=== PATIENT | female | born 1985 | race Caucasian/White ===

== ENCOUNTER 2024-02-29 10:33 | Emergency (ER) | payer MEDICAID ==
[~2024-02-29] VITALS: Ht 170.2 cm; Wt 91.9 kg
[2024-02-29 10:58] LABS: BASOPHILS % (AUTO) 0.3 % (0-1); EOSINOPHILS # (AUTO) 0.1 X10'3 (0-0.9); EOSINOPHILS % (AUTO) 2.1 % (0-6); HEMATOCRIT 44.9 % (35.0-45.0); HEMOGLOBIN 15.1 g/dl (12.0-16.0); LYMPHOCYTES # (AUTO) 1.6 X10'3 (1.1-4.8); LYMPHOCYTES % (AUTO) 23.2 % (21-51); MEAN CORPUSCULAR HEMOGLOBIN 29.7 PG (27.0-31.0); MEAN CORPUSCULAR HGB CONC 33.5 g/dL (33.0-36.5); MEAN CORPUSCULAR VOLUME 88.7 FL (78-98); MONOCYTES # (AUTO) 0.5 X10'3 (0-0.9); MONOCYTES % (AUTO) 7.7 % (2-12); NEUTROPHILS # (AUTO) 4.6 X10'3 (1.8-7.7); NEUTROPHILS % (AUTO) 66.7 % (42-75); PLATELET COUNT 203 X10'3 (140-440); RED BLOOD COUNT 5.06 X10'6 (4.20-5.60); RED CELL DISTRIBUTION WIDTH 14.5 % (11.5-14.5); WHITE BLOOD COUNT 6.8 X10'3 (4.5-11.0)
[2024-02-29 11:11] LABS: ALANINE AMINOTRANSFERASE 36 U/L (12-78); ALBUMIN 3.9 G/DL (3.4-5.0); ALBUMIN/GLOBULIN RATIO 1.1 (1.1-1.5); ALKALINE PHOSPHATASE 68 IU/L (46-116); ANION GAP 9 (8-16); ASPARTATE AMINO TRANSFERASE 28 U/L (10-37); BILIRUBIN,TOTAL 1.1 MG/DL (0.1-1.0); BLOOD UREA NITROGEN 10 MG/DL (7-18); CALCIUM 9.3 MG/DL (8.5-10.1); CHLORIDE 102 MMOL/L (99-107); CREATININE 0.83 MG/DL (0.40-0.90); GLUCOSE 102 MG/DL (70-104); SODIUM 139 MMOL/L (135-145); TOTAL CARBON DIOXIDE 28.3 MMOL/L (24-32); TOTAL PROTEIN 7.6 G/DL (6.4-8.2); eGFR 77 ML/MIN
[2024-02-29 11:19] LABS: PRO BRAIN NATRIURETIC PEPTIDE 59 PG/ML (0-125)
[2024-02-29] MEDS: meclizine 12.5mg tablet PO ONE (13:29)
[2024-02-29] MEDS ORDERED: MECL-302 PO (15:04)
[2024-02-29 15:08] VITALS: BP 121/67; PULSE 76; RESP 14; TEMP 97.5; O2SAT 98
== END 2024-02-29 15:11 | disposition home or self-care (01) ==
LOC: ER 10:34
DX: R42 Dizziness and giddiness (principal); R07.9 Chest pain, unspecified; Z88.8 Allergy status to other drugs, medicaments and biological substances
CPT/HCPCS: 36415; 71045; 80053; 83880; 84484; 85025; 93005; 99285; J8597

== ENCOUNTER 2024-05-31 19:36 | Emergency (ER) | payer MEDICAID ==
[~2024-05-31] VITALS: Ht 172.7 cm; Wt 91.7 kg
[~2024-05-31 19:36] MED LIST: MECL-302 PO
[2024-05-31 19:45] VITALS: TEMP 98.3
[2024-05-31 20:09] LABS: BASOPHILS % (AUTO) 0.6 % (0-1); EOSINOPHILS # (AUTO) 0.1 X10'3 (0-0.9); EOSINOPHILS % (AUTO) 1.9 % (0-6); HEMATOCRIT 40.2 % (35.0-45.0); HEMOGLOBIN 13.7 g/dl (12.0-16.0); LYMPHOCYTES # (AUTO) 2.1 X10'3 (1.1-4.8); LYMPHOCYTES % (AUTO) 27.5 % (21-51); MEAN CORPUSCULAR HEMOGLOBIN 31.1 PG (27.0-31.0); MEAN CORPUSCULAR HGB CONC 34.2 g/dL (33.0-36.5); MEAN PLATELET VOLUME 8.2 FL (7.4-10.4); MONOCYTES # (AUTO) 0.5 X10'3 (0-0.9); MONOCYTES % (AUTO) 6.8 % (2-12); NEUTROPHILS # (AUTO) 4.8 X10'3 (1.8-7.7); NEUTROPHILS % (AUTO) 63.2 % (42-75); PLATELET COUNT 206 X10'3 (140-440); RED BLOOD COUNT 4.42 X10'6 (4.20-5.60); RED CELL DISTRIBUTION WIDTH 13.2 % (11.5-14.5); WHITE BLOOD COUNT 7.6 X10'3 (4.5-11.0)
[2024-05-31 20:23] LABS: ALANINE AMINOTRANSFERASE 20 U/L (12-78); ALBUMIN 3.9 G/DL (3.4-5.0); ALBUMIN/GLOBULIN RATIO 1.2 (1.1-1.5); ALKALINE PHOSPHATASE 62 IU/L (46-116); ANION GAP 7 (8-16); ASPARTATE AMINO TRANSFERASE 15 U/L (10-37); BILIRUBIN,TOTAL 1.1 MG/DL (0.1-1.0); BLOOD UREA NITROGEN 9 MG/DL (7-18); BUN/CREATININE RATIO 10.6 (10.0-20.0); CALCIUM 9.1 MG/DL (8.5-10.1); CHLORIDE 102 MMOL/L (99-107); CREATININE 0.85 MG/DL (0.40-0.90); GLUCOSE 118 MG/DL (70-104); LIPASE 30 U/L (16-77); POTASSIUM 3.7 MMOL/L (3.5-5.1); SODIUM 137 MMOL/L (135-145); TOTAL CARBON DIOXIDE 28.2 MMOL/L (24-32); TOTAL PROTEIN 7.1 G/DL (6.4-8.2); eCRCL 91 ML/MIN; eGFR 75 ML/MIN
[2024-05-31 20:55] LABS: BILIRUBIN,URINE NEGATIVE (Neg); CLARITY,URINE CLEAR (Clear); COLOR,URINE STRAW (Yellow); GLUCOSE, URINE NEGATIVE (Neg); KETONES,URINE NEGATIVE (Neg); LEUKOCYTE ESTERASE ,URINE NEGATIVE (Neg); NITRITES, URINE NEGATIVE (Neg); OCCULT BLOOD,URINE NEGATIVE (Neg); PROTEIN,URINE NEGATIVE (Neg); UROBILINOGEN,URINE 0.2 E.U/dL (0.2-1.0)
[2024-05-31 20:56] LABS: URINE HCG POSITIVE (NEG)
[2024-05-31 21:01] LABS: UA COLLECTION TYPE CLN CATCH MIDSTREAM
[2024-05-31] MEDS: morphine 4 MG/ML inj SYRINge IV ONE (21:59)
[2024-05-31] MEDS: ondansetron/PF 4mg/2ml inj IV ONE (21:59)
[2024-06-01 00:14] LABS: BETA HCG,QUANTITATIVE 388 mIU/ml
[2024-06-01] MEDS ORDERED: HYDR-3965 PO (02:07)
[2024-06-01] MEDS ORDERED: ONDA-245 PO (02:07)
[2024-06-01 02:17] VITALS: BP 139/87; PULSE 89; RESP 16; O2SAT 100
== END 2024-06-01 02:24 | disposition home or self-care (01) ==
LOC: ER 19:37
DX: N93.9 Abnormal uterine and vaginal bleeding, unspecified (principal); Z88.8 Allergy status to other drugs, medicaments and biological substances; Z79.899 Other long term (current) drug therapy; Z98.51 Tubal ligation status
CPT/HCPCS: 36415; 76817; 76856; 80053; 81003; 81025; 83690; 84702; 85025; 93976; 96374; 96375; 99285; J2270; J2405

== ENCOUNTER 2024-09-24 11:19 | Emergency (ER) | payer MEDICAID ==
[~2024-09-24] VITALS: Ht 170.2 cm; Wt 93.0 kg
[~2024-09-24 11:19] MED LIST changes: +NEOM10SO7 RIGHT EAR; +ONDA-245 PO
[2024-09-24] MEDS ORDERED: BUTA-245 PO (12:20)
[2024-09-24] MEDS: ketorolac trometh 30MG/ML vial 30 MG/ML VIAL IM ONE (13:06)
[2024-09-24] MEDS: ondansetron 4mg rapidly disintigrating tab PO ONE (13:45)
[2024-09-24 14:04] VITALS: BP 144/88; PULSE 79; RESP 16; TEMP 98.1; O2SAT 99
== END 2024-09-24 14:02 | disposition home or self-care (01) ==
LOC: ER 11:19
DX: G43.909 Migraine, unspecified, not intractable, without status migrainosus (principal); Z88.8 Allergy status to other drugs, medicaments and biological substances; Z79.899 Other long term (current) drug therapy
CPT/HCPCS: 96372; 99283; J1885; A6449

== ENCOUNTER 2024-11-12 08:10 | Emergency (ER) | payer MEDICAID ==
[~2024-11-12] VITALS: Ht 175.3 cm; Wt 94.8 kg
[~2024-11-12 08:10] MED LIST changes: +BUTA-245 PO; -NEOM10SO7 RIGHT EAR
[2024-11-12] MEDS: normal saline 1000ML IV soln IVB ONE (09:53)
[2024-11-12] MEDS: ketorolac trometh 15mg/ml vial 15 MG/ML ML IV ONE (09:53)
[2024-11-12 10:21] VITALS: RESP 16
[2024-11-12 10:27] VITALS: BP 127/71; PULSE 66; TEMP 98.2; O2SAT 99
== END 2024-11-12 10:36 | disposition home or self-care (01) ==
LOC: ER 08:10
DX: G43.909 Migraine, unspecified, not intractable, without status migrainosus (principal); Z88.8 Allergy status to other drugs, medicaments and biological substances
CPT/HCPCS: 96374; 99283; J1885; J7030

== ENCOUNTER 2025-01-01 11:50 | Emergency (ER) | payer MEDICAID ==
[~2025-01-01] VITALS: Ht 170.2 cm; Wt 95.0 kg
[2025-01-01 12:00] VITALS: BP 150/81; PULSE 85; RESP 15; O2SAT 99
[2025-01-01 13:12] LABS: CLARITY,URINE SLIGHTLY CLOUDY (Clear); COLOR,URINE YELLOW (Yellow); UA COLLECTION TYPE CLN CATCH MIDSTREAM
[2025-01-01 13:13] LABS: GLUCOSE, URINE NEGATIVE (Neg); KETONES,URINE NEGATIVE (Neg); OCCULT BLOOD,URINE LARGE (Neg); PROTEIN,URINE TRACE mg/dl (Neg)
[2025-01-01 13:14] LABS: BILIRUBIN,URINE NEGATIVE (Neg); LEUKOCYTE ESTERASE ,URINE MODERATE (Neg); NITRITES, URINE NEGATIVE (Neg); UROBILINOGEN,URINE 0.2 E.U/dL (0.2-1.0)
[2025-01-01 13:15] LABS: BACTERIA,URINE 1+ /HPF (Neg); MUCUS STRANDS FEW /LPF (Neg); SQUAMOUS EPITHELIAL CELL,UR FEW /LPF (FEW); TRANSITIONAL EPI CELLS,URINE FEW /HPF; WBC CLUMPS,URINE MODERATE /HPF (NEGATIVE); WBC,URINE 20-30 /HPF (0-4)
--- NOTE | 2025-01-01 14:17 | Physician Documentation ---
History of Present Illness ~ Chief Complaint: Urinary Symptoms Stated Complaint: UTI Time Seen by MD: 12:12 HPI Patient is seen today with complaints of urinary tract infection like symptoms including dysuria, urgency, frequency. Patient denies any fevers or chills or body aches or flank pain. Patient has no other concern or complaint at this time. Patient states her last urinary tract infection was around age 18. Medication Reconciliation Allergies: Coded Allergies: sumatriptan (Verified Allergy, Severe, anaphylaxis, 09/24/24) Scheduled Meclizine HCl (Meclizine HCl), 1 TAB PO Q8H Ondansetron 8mg ODT (Ondansetron Odt), 1 TAB PO Q6H Scheduled PRN Butalb/Acetaminophen/Caffeine (Fioricet Tab), 1 TAB PO Q12H PRN PRN for pain, (Reported) Review of Systems Constitutional: Denies: chills, fever, weakness Eyes: Denies: pain, blurred vision ENT: Denies: ear pain, nose pain, throat pain, mouth pain Respiratory: Denies: cough, shortness of breath Cardiovascular: Denies: chest pain, palpitations Gastrointestinal: Denies: abdominal pain, nausea, vomiting Genitourinary: Denies: burning, dysuria Female Genitalia: Denies: vaginal discharge, pelvic pain Neurological: Denies: headache, dizziness Musculoskeletal: Denies: pain, swelling Integumentary: Denies: rash, lesions Allergic/Immunologic: Denies: hives, itching Hematologic/Lymphatic: Denies: no symptoms reported Psychiatric: Denies: depression, anxiety Physical Exam Vital Signs: Temperature: 98.1, Heart Rate: 85, Respiratory Rate: 15, BP: 150/81, Pulse Oximetry: 99, Weight: 95.000 Oxygen Flow Rate: 0 Physical Exam General: Awake and Alert, no acute distress. HEENT: Conjunctiva pink, Sclera clear, Mucus Membranes moist. Neck: Supple without masses and tenderness. Resp: Unlabored. Lungs clear to auscultation bilaterally. Heart: Regular Rate and rhythm, normal S1 and S2 without murmur, rub or gallop. Abdomen: Patient on exam does have mild tenderness to palpation of the suprapubic area. CVA tenderness is negative bilaterally. Extremities: No cyanosis,clubbing or edema. Skin: Warm and Dry. Progress Results/Orders Results/Orders Orders - THAD PORTER Nguyễn PAC Cult Urine + [address] (01/01/25 13:16) Completed Orders - PORTERTHAD Nguyễn PAC Ua W/Microscopic, Cult If Ind (01/01/25 12:01) Vital Signs 01/01/25 12:00 Temp 98.1 Pulse 85 Resp 15 B/P (MAP) 150/81 Pulse Ox 99 O2 Flow Rate 0 Laboratory Tests Test 01/01/25 12:01 Urine Specimen Description Cln catch midstream Urine Color Yellow Urine Clarity Slightly cloudy Urine pH 6.0 Urine Specific [place] 1.010 Urine Protein Trace Urine Glucose (UA) Negative Urine Ketones Negative Urine Occult Blood Large H Urine Nitrite Negative Urine Bilirubin Negative Urine Urobilinogen 0.2 Urine Leukocyte Esterase Moderate H Urine RBC 10-20 Urine WBC 20-30 H Urine WBC Clumps Moderate Urine Squamous Epithelial Cells Few Urine Transitional Epithelial Cells Few Urine Bacteria 1+ Urine Mucus Few Urine Culture Indicated Indicated Volume Urine Centrifuged 10 ml Urine Comment Medical Decision Making Findings Patient is seen today with complaints of urinary tract infection like symptoms including dysuria, urgency, frequency. Patient denies any fevers or chills or body aches or flank pain. Patient has no other concern or complaint at this time. Patient states her last urinary tract infection was around age 18. Patient was given a dose of Rocephin 1 g IM in the ED today. Prescription of Keflex 500 mg one tab 3 times a day to be taken for five days sent to patient's pharmacy. Patient will return to ED with any worsening, concerning or changing symptoms. Shared decision-making utilized today. Departure Disposition: HOME / SELF CARE / HOMELESS Impression: Primary Impression: Acute urinary tract infection Condition: Improved Discharge Instructions: Urinary Tract Infection, Adult Additional Instructions: Patient was given a dose of Rocephin 1 g IM in the ED today. Prescription of Keflex 500 mg one tab 3 times a day to be taken for five days sent to patient's pharmacy. Patient will return to ED with any worsening, concerning or changing symptoms. Shared decision-making utilized today. Referrals: NO PRIMARY CARE PROVIDER (PCP) Prescriptions Cephalexin*Monohydrate* (Keflex*) 500 Mg Capsule 1 CAP PO Q8H for 5 Days, #15 CAP Prov: PORTERCHRISTIANTHAD R PAC 01/01/25 Signature Scribe Signature: No scribe Attestation: No scribe PORTER,THAD R PAC January 01, 2025 14:17
[2025-01-01] MEDS ORDERED: CEPH-585 PO (14:20)
[2025-01-01] MEDS: CefTRIAXone 1000mg IM Kit (w/lidocaine diluent) IM STA (14:22)
[2025-01-01 14:32] VITALS: TEMP 98.1
== END 2025-01-01 14:33 | disposition home or self-care (01) ==
LOC: ER 11:51
DX: N39.0 Urinary tract infection, site not specified (principal); Z88.8 Allergy status to other drugs, medicaments and biological substances; Z79.899 Other long term (current) drug therapy
CPT/HCPCS: 81001; 87077; 87088; 87186; 96372; 99283; J0696

== ENCOUNTER 2025-02-22 09:00 | Emergency (ER) | payer MEDICAID ==
[~2025-02-22] VITALS: Ht 170.2 cm; Wt 88.8 kg
[2025-02-22 09:06] VITALS: TEMP 97.6
[2025-02-22 09:57] LABS: MEAN PLATELET VOLUME 8.5 FL (7.4-10.4); RED CELL DISTRIBUTION WIDTH 13.3 % (11.5-14.5)
--- NOTE | 2025-02-22 10:01 | RADIOLOGY REPORT ---
EXAM: DI CHEST,SINGLE VIEW Indication: SOB Technique: Single frontal view of the chest was obtained Comparison: DI CHEST,SINGLE VIEW on DOS: 02/29/24 FINDINGS: Lines and Tubes: None Lungs: No focal consolidation. Pleura: No effusion. No pneumothorax. Cardiomediastinal contours: Unremarkable Bones: No acute osseous abnormality. IMPRESSION: No acute cardiopulmonary disease.
--- NOTE | 2025-02-22 10:07 | ELECTROCARDIOGRAPH REPORT ---
[facility] Test Date: 2025-02-22 Test Time: 09:15:57 Pat Name: MOHAN HALL Department: EMERGENCY ROOM Room: Gender: F Office Professional: CHERISE : 1985 Requested By: CARLOS FLEMING Order Number: [id number] Reading MD: Measurements Intervals [place] Rate: 90 P: 49 [place]: 151 QRS: 60 QRSD: 97 T: 39 QT: 357 QTc: 437 Interpretive Statements Sinus rhythm Please click the below link to view image of tracing.
[2025-02-22 10:19] LABS: CREATININE 0.79 MG/DL (0.40-0.90); TOTAL CARBON DIOXIDE 29.6 MMOL/L (24-32); eCRCL 94 ML/MIN; eGFR 81 ML/MIN
[2025-02-22 10:29] LABS: ETHANOL < 10 MG/DL (<10)
--- NOTE | 2025-02-22 12:10 | Physician Documentation ---
History of Present Illness ~ Chief Complaint: Mental Health Eval Stated Complaint: DEPRESSION Time Seen by MD: 09:23 Primary Medical [facility] Mode of Arrival: POV HPI 39 year old female with chest pain since this morning. She is otherwise healthy but has been very depressed lately from multiple life stressors but denies suicidal ideation. She denies fever, cough, N/V/D, urinary symptoms. She does report her pain increases with deep breathing but not body position. She has no history of DVT/PE, denies hemoptysis, denies leg swelling and recent long distance travel. Medication Reconciliation Allergies: Coded Allergies: sumatriptan (Verified Allergy, Severe, anaphylaxis, 09/24/24) Scheduled Meclizine HCl (Meclizine HCl), 1 TAB PO Q8H Ondansetron 8mg ODT (Ondansetron Odt), 1 TAB PO Q6H Scheduled PRN Butalb/Acetaminophen/Caffeine (Fioricet Tab), 1 TAB PO Q12H PRN PRN for pain, (Reported) Past Medical History Smoking Status: Never smoker Review of Systems All Other Systems at this time: Reviewed and Negative Physical Exam Vital Signs: RN Vital Signs have been reviewed: Yes, Temperature: 97.6, Source: Temporal, Heart Rate: 85, Respiratory Rate: 14, BP: 121/70, Pulse Oximetry: 98, Weight: 88.800 Oxygen Flow Rate: 0 Physical Exam HEENT: PERRL, moist oral mucosa, EOMI Pulmonary: No respiratory distress CTAB Cardiac: RRR, no murmur, rub or gallop MSK: no deformity Skin: w/d/i, no rash Neuro: alert, nonfocal Psych: normal affect Progress Results/Orders Results/Orders Orders - CARLOS FLEMING MD Urinalysis (02/22/25 09:12) Hcg, Ur Ql (02/22/25 09:12) Drug Screen, Urine (02/22/25 09:12) Close Observation Level (02/22/25 09:12) Covid19 Binax Poc Result Entry (02/22/25 09:12) Regular Diet (02/22/25 Lunch) Chest,Single View (02/22/25 09:21) Completed Orders - CARLOS FLEMING MD Electrocardiogram (02/22/25 09:10) Cbc/Diff (02/22/25 09:12) Ethanol (02/22/25 09:12) TSH (02/22/25 09:12) BMP (02/22/25 09:12) Chest,Single View (02/22/25 09:21) Vital Signs 02/22/25 02/22/25 02/22/25 09:06 09:31 10:15 Temp 97.6 Pulse 92 85 Resp 17 14 B/P (MAP) 143/89 121/70 (87) Pulse Ox 95 98 O2 Flow Rate 0 Laboratory Tests Test 02/22/25 09:25 White Blood Count 6.2 Red Blood Count 5.16 Hemoglobin 15.7 Hematocrit 46.1 H Mean Corpuscular Volume 89.3 Mean Corpuscular Hemoglobin 30.5 Mean Corpuscular Hemoglobin Concent 34.2 Red Cell Distribution Width 13.3 Platelet Count 233 Mean Platelet Volume 8.5 Neutrophils (%) (Auto) 68.0 Lymphocytes (%) (Auto) 22.3 Monocytes (%) (Auto) 7.8 Eosinophils (%) (Auto) 1.4 Basophils (%) (Auto) 0.5 Neutrophils # (Auto) 4.2 Lymphocytes # (Auto) 1.4 Monocytes # (Auto) 0.5 Eosinophils # (Auto) 0.1 Basophils # (Auto) 0.0 CBC Comment Sodium Level 133 L Potassium Level 3.4 L Chloride Level 101 Carbon Dioxide Level 29.6 Anion Gap 2 L Blood Urea Nitrogen 9 Creatinine 0.79 Estimated GFR/1.73 m2 81 BUN/Creatinine Ratio 11.4 Glucose Level 112 H Calcium Level 9.1 Albumin 4.2 Thyroid Stimulating Hormone (TSH) 1.72 Chemistry Comments Ethyl Alcohol Level < 10 EKG/XRAY/CT/US/VASC/MRI EKG : Indication: chest pain EKG Rate: 90 EKG: NSR, no ST T wave changes EKG Blocks: none Additional Comment EKG by my interpretation as above Chest X-Ray : Interpreted By: self Views: 1 VIEW Indication: chest pain Lungs: normal Mediastinum: normal Ribs/Bones: normal Abdomen: normal Medical Decision Making Findings 39 year old female with chest pain. VS unremarkable, PERC negative, and low risk patient who is likely more somatic symptoms from depression rather than significant medical pathology. Indeed her CBC/CMP/troponin/CXR/EKG were unremarkable. Will certified alcohol counselor, reassure, discharge with return precautions. She is able to verbalize a plan of self care. Differential Dx:Considerations: Include: angina, cholelithiasis, herpes zoster, myocardial infarction, pericarditis, pleuritis, pancreatitis, pneumonia, pneumothorax Departure Disposition: 01 HOME / SELF CARE / HOMELESS Impression: Primary Impression: Depression Additional Impression: Chest pain Condition: Stable Discharge Instructions: Depression, Adult Referrals: NO PRIMARY CARE PROVIDER (PCP) Education Educated: Patient Educated regarding: diagnosis, treatment, prognosis, need for follow up Signature Scribe Signature: . Attestation: . CARLOS FLEMING MD Feb 22, 2025 12:10
[2025-02-22 12:44] VITALS: BP 122/60; PULSE 74; RESP 16; O2SAT 98
== END 2025-02-22 12:43 | disposition home or self-care (01) ==
LOC: ER 09:02
DX: F32.A Depression, unspecified (principal); R07.89 Other chest pain; Z88.8 Allergy status to other drugs, medicaments and biological substances; Z79.899 Other long term (current) drug therapy; Z20.822 Contact with and (suspected) exposure to COVID-19
CPT/HCPCS: 36415; 71045; 80048; 80320; 84443; 85025; 93005; 99285

== ENCOUNTER 2025-03-11 10:22 | Emergency (ER) | payer MEDICAID ==
[~2025-03-11] VITALS: Ht 170.2 cm; Wt 84.5 kg
--- NOTE | 2025-03-11 13:00 | Physician Documentation ---
History of Present Illness ~ Chief Complaint: Headache Stated Complaint: HEADACHE,NAUSEA Time Seen by MD: 11:54 OK to notify your PCP?: Yes Primary Medical Doctor: miranda maxwell Source: patient Mode of Arrival: POV Exam Limitations: no limitations HPI 39-year-old female presents for left-sided migraine which started last night. She states when she woke up this morning it was worse. She has a history of migraines and states this feels the same. She tried taking Tylenol and ibuprofen with no relief. She does have some photophobia and was nauseous earlier today. No recent illnesses. Medication Reconciliation Allergies: Coded Allergies: sumatriptan (Verified Allergy, Severe, anaphylaxis, 09/24/24) Scheduled Meclizine HCl (Meclizine HCl), 1 TAB PO Q8H Ondansetron 8mg ODT (Ondansetron Odt), 1 TAB PO Q6H Scheduled PRN Butalb/Acetaminophen/Caffeine (Fioricet Tab), 1 TAB PO Q12H PRN PRN for pain, (Reported) Review of Systems All Other Systems at this time: Reviewed and Negative Physical Exam Vital Signs: RN Vital Signs have been reviewed: Yes, Temperature: 97.1, Source: Oral, Heart Rate: 75, Respiratory Rate: 16, BP: 117/79, Pulse Oximetry: 97, Weight: 84.500 Oxygen Flow Rate: 0 Pulse Oximetry Reflects: adequate oxygenation Physical Exam General: Alert, no apparent distress. HEENT: PERRL, EOMI, no injection, moist mucous membranes. Neck: Full range of motion. Respiratory: Lungs clear, no respiratory distress. Chest: No accessory muscle use. Cardiovascular: Regular rate and rhythm, no murmurs. Gastrointestinal: Soft, nontender, nondistended. Bowels sounds present. Extremities: Normal range of motion, no deformity. Neurologic: Oriented x4. Psychiatric: Normal mood and affect. Skin: Normal color, warm and dry. No edema, no ecchymosis. Progress Progress Note 1321: She experienced an episode after administration of Toradol and Benadryl of shortness of breath and anxiety. She reports that she has had these medications before and not had this type of a reaction. I discussed this case with Dr. Pardo and no further medications are needed just reassurance that Benadryl IV can sometimes make you feel weird. As I was in the room with the patient she started to calm down and breathe better approximately 3 minutes after feeling short of breath. Results/Orders Reviewed/noted all lab results: Yes Results/Orders Orders - LEATHA GILBERT Saline Lock (03/11/25 ) Completed Orders - LEATHA GILBERT [employer] Normal Saline 1000ml (0.9% Sodium Chlori (03/11/25 12:55) Ketorolac Trometh 15mg/Ml Vial (Toradol (03/11/25 12:55) Diphenhydramine Inj (Benadryl Inj.) (03/11/25 12:55) Medications Received in ER Medications (Trade) Dose Ordered Sig/Krishna Route PRN Reason Start Time Stop Time Status Last Admin Dose Admin (0.9% sodium chloride (NS) 1000ml IV soln) 1,000 ml ONCE ONCE IVB 03/11/25 12:55 03/11/25 12:59 DC 03/11/25 13:18 1,000 ML (Toradol injection) 15 mg ONCE ONCE IV 03/11/25 12:55 03/11/25 12:59 DC 03/11/25 13:19 15 MG (Benadryl inj.) 50 mg ONCE ONCE IV 03/11/25 12:55 03/11/25 12:59 DC 03/11/25 13:19 50 MG Vital Signs 03/11/25 03/11/25 03/11/25 10:45 12:36 13:25 Temp 97.1 Pulse 93 75 79 Resp 18 16 16 B/P (MAP) 129/83 117/79 (92) 135/91 (106) Pulse Ox 98 97 98 O2 Flow Rate 0 0 Medical Decision Making Additional info obtained from: old records Findings 41-year-old female presents with migraine. She states that this feels like her usual migraine and it started yesterday but has worsened this morning. She tried [id number] measures. She is allergic to Imitrex. She states she normally just comes here and gets a migraine cocktail IV and some fluids and usually feels better afterward. I ordered Benadryl and Toradol and a L of normal saline while here in the department. Her vital signs are stable and her physical exam is unremarkable. She is feeling better after these medications have been initiated. She did have the episode of feeling weird and anxiety and shortness of breath immediately after administration but that has all since resolved. She states that she is feeling much better, her breathing is back to normal, and her vital signs have remained stable throughout the entire stay. She was given follow up and return instructions. Differential Dx:Considerations: Include: Carbon monoxide toxicity, CVA, Fever induced, Meningitis, Temporal arteritis, Trigeminal neuralgia Departure Disposition: 01 HOME / SELF CARE / HOMELESS Impression: Primary Impression: Migraine Condition: Stable Discharge Instructions: Migraine Headache Additional Instructions: Follow up with her primary care provider and return back here for any new or worsening symptoms. Referrals: NO PRIMARY CARE PROVIDER (PCP) Education Educated: Patient Educated regarding: diagnosis, treatment, prognosis, need for follow up Additional Comment Medical Screen Exam This patient recieved a medical screening examination. After reviewing the individual's medical complaints with presenting symptoms and performing an appropriate physical examination, it was determined that no immediate life- threatening emergency medical condition is present. This individual is also not a women having contractions. Signature Scribe Signature: . Attestation: Scribed for Leatha Glibert by Leatha Quiroga NP . 03/11/25 13:43 Parts of this note were created using [email or web address] voice recognition software program. While efforts were made to correct any mistakes made by this voice recognition software program, nonsensical phrases may remain in this note. In addition, there may be errors and syntax, grammar, content and spelling. LEATHA GILBERT Mar 11, 2025 13:00
[2025-03-11] MEDS: normal saline 1000ML IV soln IVB ONE (13:18)
[2025-03-11] MEDS: ketorolac trometh 15mg/ml vial 15 MG/ML ML IV ONE (13:19)
[2025-03-11 14:27] VITALS: BP 119/63; PULSE 58; RESP 14; TEMP 98.1; O2SAT 100
== END 2025-03-11 14:27 | disposition home or self-care (01) ==
LOC: ER 10:22
DX: G43.909 Migraine, unspecified, not intractable, without status migrainosus (principal); R11.0 Nausea; Z88.8 Allergy status to other drugs, medicaments and biological substances
CPT/HCPCS: 96361; 96374; 96375; 99284; J1200; J1885; J7030

== ENCOUNTER 2025-03-25 07:25 | Emergency (ER) | payer MEDICAID ==
[~2025-03-25] VITALS: Ht 170.2 cm; Wt 85.8 kg
--- NOTE | 2025-03-25 08:15 | Physician Documentation ---
History of Present Illness ~ Chief Complaint: Eye Pain Stated Complaint: LEFT EYE PAIN Time Seen by MD: 08:13 OK to notify your PCP?: Yes Primary Medical Doctor: miranda maxwell Source: patient, RN/, RN notes reviewed Mode of Arrival: POV Exam Limitations: no limitations HPI This pleasant female has been complaining of left eye pain for about two days. She has no new soaps or mascara. The left lower eyelid is slightly swollen and tender mostly at the medial aspect where you tear. She denies any abscesses or infection of any eyelids. She has been putting warm compresses on her eye but still does not seem to help. She is concerned that her pains getting worse. She woke up with some swelling and some trace discharge this morning but other than the initial blurred vision she is feeling better. She denies any foreign bodies or trauma to the area she appears well she states she is always slightly congested but no new congestion. Medication Reconciliation Allergies: Coded Allergies: sumatriptan (Verified Allergy, Severe, anaphylaxis, 03/25/25) Scheduled Amox Tr/Potassium Clavulanate 875/125 MG (Augmentin 875/125 MG), 1 TAB PO Q12H Meclizine HCl (Meclizine HCl), 1 TAB PO Q8H Ondansetron 8mg ODT (Ondansetron Odt), 1 TAB PO Q6H Scheduled PRN Butalb/Acetaminophen/Caffeine (Fioricet Tab), 1 TAB PO Q12H PRN PRN for pain, (Reported) Past Medical History Past Medical History: Headache Past Surgical History: no surgical history Smoking Status: Never smoker Alcohol Use: None Drug Use: none Review of Systems All Other Systems at this time: Reviewed and Negative Physical Exam Vital Signs: RN Vital Signs have been reviewed: Yes, Temperature: 98.6, Source: Oral, Heart Rate: 79, Respiratory Rate: 18, BP: 125/94, Pulse Oximetry: 97, Weight: 85.800 Oxygen Flow Rate: 0 Physical Exam General: The patient is well developed, well nourished, nontoxic appearing and is in no acute distress. Skin: [place], warm and dry with no rashes. HEENT: Head was normocephalic and atraumatic. Eyes - pupils equal, round, reactive to light and accommodation. Left lower eyelid slightly swollen. There are no abscesses or abnormal follicles of the lower lid. The most medial aspect aspect of the nasolacrimal duct seems to be slightly inflamed red and tender. Extraocular movements were intact. Conjunctivae were nonicteric. The mouth and oropharynx were clear with moist mucous membranes. Neck: Supple and nontender. There was no jugular venous distention, lymphadenopathy, thyromegaly or masses. Chest: Clear to auscultation bilaterally without wheezes, rales or rhonchi. Heart: Rate regular and rhythmic. S1, S2. No murmurs. Palpation of the chest wall was normal. Abdomen: Soft, nontender and nondistended. Extremities: No cyanosis, clubbing or edema. The patient moves all extremities. Pulses were equal and symmetric. Neurologic: Motor sensory grossly intact Psychologic: The patient was oriented to person, place and time. The patient demonstrated appropriate judgement and insight. Progress Results/Orders Reviewed/noted all lab results: Yes Results/Orders Orders - EZ BETANCOURT MD Diphenhydramine Capsule (Benadryl Capsul (03/25/25 08:35) Ibuprofen Tablet (Motrin Tablet) (03/25/25 08:35) Amox Tr/Potassium Clavulanate (Augmentin (03/25/25 08:35) Vital Signs 03/25/25 03/25/25 07:25 08:13 Temp 98.6 Pulse 81 79 Resp 16 18 B/P (MAP) 119/57 125/94 (104) Pulse Ox 97 97 O2 Flow Rate 0 0 Re-Evaluation Re-Evaluation : Re-Evaluation: Improved Progress Patient was seen and examined. Patient was given reassurance. Patient was given antibiotics for the nasal lacrimal duct that seems to be inflamed also decongestants and anti-inflammatories were both given an prescribed. Patient was then discharged home to continue with warm compresses follow up with ears Nose and Throat, ophthalmology or your primary care physician depending on your symptoms. Medical Decision Making Additional info obtained from: old records Eye Diff. Dx: Considerations: Include: [place], Foreign body-conjuctiva, Foreign body-corneal, Foreign body-intraocular, Foreign body-lid, Hordeolum, Iritis, Orbital cellulitis, Periobital cellulitis, Rust ring, Subconjunctival hem, Ultraviolet keratitis, Uveitis, Vitreous hemorrhage, Other Departure Disposition: 01 HOME / SELF CARE / HOMELESS Impression: Primary Impression: Pain and swelling of lower eyelid of left eye Additional Impression: Nasal lacrimal duct inflammation Condition: Stable Discharge Instructions: Nasolacrimal Duct Obstruction, Pediatric Referrals: NO PRIMARY CARE PROVIDER (PCP) Prescriptions Amox Tr/Potassium Clavulanate 875/125 MG (Augmentin 875/125 MG) 875 Mg-125 Mg Tablet 1 TAB PO Q12H for 10 Days, #20 TAB Prov: EZ BETANCOURT MD 03/25/25 Education Educated: Patient Educated regarding: diagnosis, need for follow up, other Signature Scribe Signature: . Attestation: The note accurately reflects work and decisions made by me.Ez Betancourt MD 03/25/25 08:15 EZ BETANCOURT MD Mar 25, 2025 08:15
[2025-03-25] MEDS ORDERED: AMOX-580 PO (08:29)
[2025-03-25] MEDS: amox tr/potassium clavulanate 875/125mg TAB PO ONE (08:38)
[2025-03-25 08:41] VITALS: BP 125/94; PULSE 81; RESP 18; TEMP 98.6; O2SAT 97
== END 2025-03-25 08:35 | disposition home or self-care (01) ==
LOC: ER 07:26
DX: H57.12 Ocular pain, left eye (principal); J34.89 Other specified disorders of nose and nasal sinuses
CPT/HCPCS: 99284; Q0163

== ENCOUNTER 2025-07-01 09:45 | Emergency (ER) | payer MEDICAID ==
[~2025-07-01] VITALS: Ht 172.7 cm; Wt 80.9 kg
[2025-07-01 09:46] VITALS: BP 103/58; PULSE 98; RESP 16; TEMP 97.7; O2SAT 96
[2025-07-01] MEDS ORDERED: AMOX-580 PO (10:07)
--- NOTE | 2025-07-01 10:07 | Physician Documentation ---
History of Present Illness General Chief Complaint: Post-operative complication Stated Complaint: POST OP COMPLICATIONS Time Seen by MD: 09:59 Primary Medical Doctor: CLEVE Mode of Arrival: POV History of Present Illness Initial Comments 40-year-old female who presents to the emergency department 72 hours status post April with a plastic surgery and DAVIS Vargas. Noted follow up purulent smelling discharge this morning and contact DAVIS Vagras and was recommended to presents for evaluation. Denies headache, dizziness visual difficulties or cough. No reported fever. Medication Reconciliation Allergies: Coded Allergies: sumatriptan (Verified Allergy, Severe, anaphylaxis, 03/25/25) Scheduled Amox Tr/Potassium Clavulanate 875/125 MG (Augmentin 875/125 MG), 1 TAB PO BID Meclizine HCl (Meclizine HCl), 1 TAB PO Q8H Ondansetron 8mg ODT (Ondansetron Odt), 1 TAB PO Q6H Scheduled PRN Butalb/Acetaminophen/Caffeine (Fioricet Tab), 1 TAB PO Q12H PRN PRN for pain, (Reported) Past Medical History Past Medical History: Headache Past Surgical History: no surgical history Alcohol Use: None Drug Use: none Review of Systems All Other Systems at this time: Reviewed and Negative Constitutional: Denies: fever, chills HENT: Reports: nasal discharge Physical Exam Physical Exam Vital Signs: RN Vital Signs have been reviewed: Yes, Temperature: 97.7, Source: Temporal, Heart Rate: 98, Respiratory Rate: 16, BP: 103/58, Pulse Oximetry: 96, Weight: 80.900 Oxygen Flow Rate: 0 General Appearance: alert, WD/WN, mild distress Head: normal inspection Face: normal inspection Pupils/EOM/Fundus: PERRLA Nose: swelling, other (Green purulent nasal discharge without turbinate excoriation or edema) Neck: non-tender Respiratory: lungs clear Chest: no accessory muscle use Cardiovascular: normal peripheral pulses Extremities: normal range of motion Neurologic: oriented x4 Motor / Sensory: no motor deficit Psychiatric: normal mood/affect Progress Results/Orders Results/Orders Vital Signs 07/01/25 07/01/25 09:46 10:00 Temp 97.7 Pulse 98 Resp 16 B/P (MAP) 103/58 Pulse Ox 96 O2 Flow Rate 0 Medical Decision Making Additional information obtaine: N/A Findings Examination and history consistent with post surgical infection and we will begin a mountain. No suspected cavernous sinus syndrome or sinusitis requiring corticosteroids. We will begin Augmentin. Patient is safe for discharge. Differential Diagnosis Sinusitis, cavernous sinus syndrome less likely tumor mass. Departure Disposition: HOME / SELF CARE / HOMELESS Impression: Primary Impression: Post surgical nasal infection Condition: Stable Additional Instructions: Please begin antibiotic as directed. Please follow up with the ENT service of [facility]. Return to the emergency department if symptoms worsen. Thank you for visiting [facility]. Referrals: NO PRIMARY CARE PROVIDER (PCP) Prescriptions Amox Tr/Potassium Clavulanate 875/125 MG (Augmentin 875/125 MG) 875 Mg-125 Mg Tablet 1 TAB PO BID, #20 TAB Prov: DORON MARSH 07/01/25 Education Educated: Patient Educated regarding: diagnosis, treatment, prognosis, need for follow up Signature Scribe Signature: . Attestation: . DORON MARSH Jul 01, 2025 10:07
== END 2025-07-01 10:15 | disposition home or self-care (01) ==
LOC: ER 09:46
DX: T81.40XA Infection following a procedure, unspecified, initial encounter (principal); Z88.8 Allergy status to other drugs, medicaments and biological substances; Z79.899 Other long term (current) drug therapy
CPT/HCPCS: 99283

== ENCOUNTER 2025-07-05 09:03 | Emergency (ER) | payer MEDICAID ==
[~2025-07-05] VITALS: Ht 172.7 cm; Wt 81.3 kg
[~2025-07-05 09:03] MED LIST changes: +AMOX-580 PO
[2025-07-05 09:14] VITALS: TEMP 97.8
--- NOTE | 2025-07-05 09:37 | Physician Documentation ---
History of Present Illness ~ Chief Complaint: Headache Stated Complaint: HEADACHE Time Seen by MD: 09:34 Primary Medical Doctor: [facility] HPI Patient is a pleasant 40-year-old female that presents to the emergency department for evaluation of migraine. Patient reports that she had a procedure on her sinuses a week ago was told that she can not take NSAIDs until after her follow up. Patient took Tylenol today. She normally takes ibuprofen for her migraine reports that she is unable to. Discussed with the patient the procedure that she had that typically a week out from the procedure is safe to take NSAIDs. Patient denies visual changes fever chills nausea vomiting diarrhea at this time. Other symptoms reported. Medication Reconciliation Allergies: Coded Allergies: sumatriptan (Verified Allergy, Severe, anaphylaxis, 07/05/25) Scheduled Amox Tr/Potassium Clavulanate 875/125 MG (Augmentin 875/125 MG), 1 TAB PO BID Meclizine HCl (Meclizine HCl), 1 TAB PO Q8H Ondansetron 8mg ODT (Ondansetron Odt), 1 TAB PO Q6H Scheduled PRN Butalb/Acetaminophen/Caffeine (Fioricet Tab), 1 TAB PO Q12H PRN PRN for pain, (Reported) Past Medical History Past Medical History: Headache Past Surgical History: no surgical history Alcohol Use: None Drug Use: none Review of Systems ROS As stated above in the HPI, otherwise all systems are reviewed and negative. Physical Exam Vital Signs: Temperature: 97.8, Source: Temporal, Heart Rate: 80, Respiratory Rate: 18, BP: 143/70, Pulse Oximetry: 98, Weight: 81.300 Physical Exam VITALS: Reviewed and as above. GENERAL: Alert, no apparent distress. HEENT: Normocephalic, atraumatic, PERRL, EOMI, dry mucosa, no erythema RESPIRATORY: Lungs clear, normal breath sounds, no respiratory distress. CHEST: No accessory muscle use, no retractions CV: Regular rate, rhythm, no edema, no murmur, No: JVD GI: Soft, non-tender, bowels sounds present, no rebound, guarding, or rigidity BACK: No CVA tenderness, or swelling MUSCULOSKELETAL No deformities, no edema SKIN: Warm and dry, no rash NEURO: Oriented x4, No motor or sensory deficit PSYCH: Normal mood and affect, no agitation Progress Results/Orders Results/Orders Completed Orders - ROSARIO MOORE CARDIOPULMONARY TECHNICIAN Ketorolac Trometh 30mg/Ml Vial (Toradol (07/05/25 09:40) Medications Received in ER Medications (Trade) Dose Ordered Sig/Krishna Route PRN Reason Start Time Stop Time Status Last Admin Dose Admin (Toradol inj. 30mg/ml) 30 mg ONCE ONCE IM 07/05/25 09:40 07/05/25 09:43 DC 07/05/25 09:57 30 MG Vital Signs 07/05/25 07/05/25 07/05/25 09:14 09:57 10:38 Temp 97.8 Pulse 80 71 Resp 18 18 18 B/P (MAP) 143/70 135/95 (108) Pulse Ox 98 99 O2 Flow Rate 0 Medical Decision Making Additional information obtaine: other Findings Chief Complaint: Migraine headache History of Present Illness: 40-year-old female presents to the emergency department with migraine. Patient reports recent sinus surgery one week ago and was instructed by her surgeon to avoid NSAIDs until follow-up. She typically manages her migraines with ibuprofen with good effect but has been limited to acetaminophen since her procedure, which has provided inadequate relief. Patient took acetaminophen today without significant improvement. She denies visual changes, fever, chills, nausea, vomiting, or diarrhea at this time. Medical Decision Making: Number and Complexity of Problems Addressed: Moderate complexity. Patient presents with acute migraine in the setting of recent sinus surgery, requiring consideration of both effective migraine treatment and postoperative bleeding risk. Amount and Complexity of Data: Reviewed patient's recent surgical history and current medication restrictions. Discussed with patient that one week post-sinus surgery is typically considered safe for NSAID use based on current evidence, though her surgeon's specific instructions were to avoid NSAIDs until follow-up. Risk of Complications and Morbidity: The primary clinical challenge was selecting appropriate acute migraine therapy given the patient's recent sinus surgery and temporary NSAID restriction. Evidence-based acute migraine treatment includes NSAIDs, acetaminophen, and triptans as first-line options, with combination therapy demonstrating superior efficacy. However, the patient's surgeon advised avoiding NSAIDs until follow- up, likely due to theoretical bleeding concerns. Current evidence suggests that NSAID use after endoscopic sinus surgery does not significantly increase bleeding risk and may actually improve pain control. A prospective cohort study demonstrated that ibuprofen use following sinus surgery was associated with decreased pain levels and no significant difference in epistaxis compared to acetaminophen alone. The [place] [employer] guidelines note that NSAID use is not currently shown to increase bleeding risk after endoscopic sinus surgery. Despite this evidence, I elected to respect the surgeon's specific postoperative instructions and avoid oral NSAIDs at discharge. For acute treatment in the emergency department, I administered parenteral ketorolac (Toradol), which is supported by evidence as an effective nonopioid option for acute migraine in the emergency setting. The [place] [employer] guidelines support the use of nonopioid therapies, including ketorolac, as preferred first- line treatment for acute migraine, with opioids strongly discouraged given multiple effective alternatives and concerns about medication overuse headache and dependence. The single dose of parenteral ketorolac administered in the emergency department carries minimal bleeding risk one week post-surgery, particularly given the controlled setting and ability to monitor for any immediate complications. Environmental modifications (low-stimulus, cool, dark room) were employed as adjunctive therapy, consistent with evidence-based migraine management. For home management, the patient was advised to use diphenhydramine (Benadryl) as needed for comfort and to continue acetaminophen for pain. I counseled the patient that while current evidence supports NSAID safety at this postoperative timepoint, she should follow up with her surgeon as scheduled before resuming her usual ibuprofen regimen. This approach balances evidence-based migraine care with respect for the surgeon's specific postoperative plan. The patient was educated about migraine triggers, the importance of hydration and regular meals, and signs warranting return to the emergency department, including severe or worsening headache, vision changes, persistent vomiting, or signs of surgical complications. Treatment and Response: Patient received ketorolac 30 mg IM and was placed in a low-stimulus environment with lights dimmed for approximately one hour. She reported good relief from her migraine symptoms following this intervention. Patient tolerated treatment well without adverse effects. Disposition and Follow-up: Patient discharged home in stable condition with instructions to: Use diphenhydramine as needed for comfort Continue acetaminophen for pain management Follow up with primary care provider as scheduled Follow up with surgeon as scheduled before resuming NSAIDs Return to emergency department for worsening or recurrent severe pain, vision changes, neurological symptoms, or any concerning features Patient verbalized understanding of discharge instructions and return precautions. Overall Level of Medical Decision Making: Moderate complexity, based on moderate number and complexity of problems addressed, moderate amount and complexity of data reviewed, and moderate risk of complications requiring careful consideration of evidence-based migraine treatment in the context of recent surgery. References Differential Dx:Considerations: Include: WINTERS-Cluster, WINTERS-Migraine, WINTERS- Hypertensive, WINTERS-Muscular contraction, WINTERS-Post lumbar puncture, Carbon monoxide toxicity, Close head injuyr, CVA, Fever induced, Hemorrhage-Epidural, Hemorrhage-Intracerebral, Hemorrhage-Subarachnoid, Hemorrhage-Subdural, Mass lesion, Meningitis, Post-traumtic, Pseudotumor cerebri, Sinusitis, Temporal arteritis, Trigeminal neuralgia, Other Departure Disposition: 01 HOME / SELF CARE / HOMELESS Impression: Primary Impression: Headache Additional Impression: Brain concussion Condition: Stable Discharge Instructions: Headache, Chronic Migraine Headache, [id number] Additional Instructions: You are being discharged after treatment for a migraine headache. You recently had sinus surgery, so your pain management plan is tailored to your needs. Medications and Pain Management You received a ketorolac (Toradol) injection in the emergency department for migraine relief. Do not take any additional NSAIDs (such as ibuprofen, naproxen, or aspirin) until cleared by your surgeon at your follow-up visit, as these may increase bleeding risk after sinus surgery. You may use acetaminophen (Tylenol) for pain as needed, following package instructions and not exceeding the maximum daily dose (usually 3,0004,000 mg per day). You may take diphenhydramine (Benadryl) at home as directed for comfort or sleep. Avoid opioid pain medications unless specifically prescribed, as they are not recommended for migraine or postoperative pain unless other options are ineffective. Activity and Environment Rest in a quiet, dark room if migraine symptoms return. Avoid bright lights, loud noises, and strong smells, as these can worsen migraine. Stay hydrated and eat regular meals. Maintain a consistent sleep schedule. Sinus Surgery Aftercare Follow all instructions from your surgeon regarding nasal care, medications, and follow-up appointments. Do not use NSAIDs until your surgeon approves them at your next visit. Watch for signs of infection (fever, increasing pain, redness, swelling, or unusual drainage from your nose). When to Seek Medical Attention Return to the emergency department if you experience: Severe or worsening headache not relieved by acetaminophen New or concerning symptoms (vision changes, weakness, confusion, persistent vomiting) Signs of infection or heavy bleeding from your nose Any other symptoms that worry you Follow-Up Schedule and attend your follow-up appointment with your primary care provider and your sinus surgeon as directed. Discuss any ongoing pain, medication needs, or concerns at your follow-up visits. Other Tips Keep a headache diary to track your symptoms, triggers, and medication use. Avoid known migraine triggers (certain foods, dehydration, stress, etc.). Do not take more than the recommended amount of any medication to avoid medication overuse headache. If you have any questions or concerns, contact your healthcare provider. Referrals: NO PRIMARY CARE PROVIDER (PCP) Education Educated: Patient Educated regarding: diagnosis, treatment, need for follow up Signature Scribe Signature: A Attestation: Scribed for Rosario Moore by ELIA Renee . 07/05/25 11:27 ROSARIO MOORE Jul 05, 2025 09:37
[2025-07-05] MEDS: ketorolac trometh 30MG/ML vial 30 MG/ML VIAL IM ONE (09:57)
[2025-07-05 11:42] VITALS: BP 119/94; PULSE 85; RESP 18; O2SAT 98
== END 2025-07-05 11:46 | disposition home or self-care (01) ==
LOC: ER 09:03
DX: S06.0XAA Concussion with loss of consciousness status unknown, initial encounter (principal); Z88.8 Allergy status to other drugs, medicaments and biological substances; Z79.899 Other long term (current) drug therapy; X58.XXXA Exposure to other specified factors, initial encounter; Y93.89 Activity, other specified; Y92.89 Other specified places as the place of occurrence of the external cause; Y99.8 Other external cause status
CPT/HCPCS: 96372; 99283; J1885

== ENCOUNTER 2025-08-08 18:14 | Emergency (ER) | payer MEDICAID ==
[~2025-08-08] VITALS: Ht 172.7 cm; Wt 80.4 kg
[~2025-08-08 18:14] MED LIST changes: -AMOX-580 PO
--- NOTE | 2025-08-08 21:41 | Physician Documentation ---
History of Present Illness ~ Chief Complaint: Headache Stated Complaint: MIGRAINE Time Seen by MD: 21:39 OK to notify your PCP?: Yes Primary Medical Doctor: [facility] Source: patient Mode of Arrival: Ambulatory Exam Limitations: no limitations HPI 40 year old female presents to the ED with complaints of a migraine which feels similar to previous migraines. She has no relief with Tylenol and Ibuprofen. Patient denies any other associated symptoms. Patient denies any other alleviating or exacerbating factors at this time. Medication Reconciliation Allergies: Coded Allergies: sumatriptan (Verified Allergy, Severe, anaphylaxis, 07/05/25) Scheduled Meclizine HCl (Meclizine HCl), 1 TAB PO Q8H Ondansetron 8mg ODT (Ondansetron Odt), 1 TAB PO Q6H Scheduled PRN Butalb/Acetaminophen/Caffeine (Fioricet Tab), 1 TAB PO Q12H PRN PRN for pain, (Reported) Past Medical History Past Medical History: Headache Past Surgical History: no surgical history Alcohol Use: None Drug Use: none Review of Systems All Other Systems at this time: Reviewed and Negative ROS As stated above in the HPI, otherwise all systems are reviewed and negative. Physical Exam Vital Signs: RN Vital Signs have been reviewed: Yes, Temperature: 98.0, Heart Rate: 72, Respiratory Rate: 16, BP: 150/94, Pulse Oximetry: 100, Weight: 80.400 Oxygen Flow Rate: 0 Pulse Oximetry Reflects: adequate oxygenation Physical Exam General: Patient is awake, alert, oriented x4 in no acute distress. Laying in bed with cordova covering her eyes. Head: Normocephalic and atraumatic. Eyes: Conjunctival normal. EOMI. PERRL. ENT: Mucous membranes moist. Neck: Supple, trachea is midline. Chest: Clear to auscultation bilaterally without rales, rhonchi, or wheezes. There is no accessory muscle use or retractions. Cardiac: RRR without murmurs, gallops, or rubs. Abd: Soft, nondistended, nontender, with normoactive bowel sounds. No guarding, rebound, or rigidity. Extremities: Normal strength. Normal range of motion. No deformities or edema. Back: No midline spinal or CVA tenderness. Skin: Warm and dry with no significant rash appreciated. Neuro: Cranial nerves II-XII grossly intact. No focal neuro deficits. Progress Results/Orders Results/Orders Completed Orders - DAVID PAINTER MD Normal Saline 1000ml (0.9% Sodium Chlori (08/08/25 21:45) Ketorolac Trometh 15mg/Ml Vial (Toradol (08/08/25 21:45) Acetaminophen 1,000mg/100ml Iv (Ofirmev (08/08/25 21:45) Metoclopramide Inj (Reglan Inj) (08/08/25 21:45) Medications Received in ER Medications (Trade) Dose Ordered Sig/Krishna Route PRN Reason Start Time Stop Time Status Last Admin Dose Admin Sodium Chloride 1,000 ml @ 1,000 mls/hr ONCE ONCE IV 08/08/25 21:45 08/08/25 22:44 DC 08/08/25 22:37 1,000 MLS/HR (Toradol injection) 15 mg ONCE ONCE IV 08/08/25 21:45 08/08/25 21:46 DC 08/08/25 22:33 15 MG Acetaminophen 100 ml @ 400 mls/hr ONCE ONCE IV 08/08/25 21:45 08/08/25 21:59 DC 08/08/25 22:36 400 MLS/HR (Reglan inj) 5 mg ONCE ONCE IV 08/08/25 21:45 08/08/25 21:46 DC 08/08/25 22:30 5 MG Vital Signs 08/08/25 08/08/25 08/08/25 08/08/25 18:53 21:38 21:40 23:51 Temp 98.0 98.0 98.0 Pulse 84 72 77 Resp 16 16 16 B/P (MAP) 128/59 150/94 (112) 146/92 Pulse Ox 98 100 99 O2 Flow Rate 0 0 Medical Decision Making Additional information obtaine: old records Findings Patient presents to the emergency room for evaluation of migraine headache. Differentials include but are not limited to migraine, tension headache, men ingitis, intracranial bleed. Given patient's history with description of the headache that has her classic migraine he had not feel emergent labs or imaging is necessary. She is responding to therapy and feels ready to go. Differential Dx:Considerations: Include: WINTERS-Cluster, WINTERS-Migraine, WINTERS- Hypertensive, WINTERS-Muscular contraction, WINTERS-Post lumbar puncture, Carbon monoxide toxicity, Close head injuyr, CVA, Fever induced, Hemorrhage-Epidural, Hemorrhage-Intracerebral, Hemorrhage-Subarachnoid, Hemorrhage-Subdural, Mass lesion, Meningitis, Post-traumtic, Pseudotumor cerebri, Sinusitis, Temporal arteritis, Trigeminal neuralgia, Other Departure Time of Disposition: 21:50 Disposition: HOME / SELF CARE / HOMELESS Impression: Primary Impression: Migraine Condition: Improved Discharge Instructions: Migraine Headache Additional Instructions: Follow up with your PCP for further evaluation and care. Please return to the ED if you develop any new or worsening symptoms. Referrals: NO PRIMARY CARE PROVIDER (PCP) Education Educated: Patient Educated regarding: diagnosis, treatment, need for follow up Signature Scribe Signature: Scribed for David Painter MD by Hira Aldana . 08/08/25 21:51 Attestation: The note accurately reflects work and decisions made by me.David Painter MD 08/09/25 03:59 DAVID PAINTER MD Aug 08, 2025 21:41 HIRA MONTIEL Aug 08, 2025 21:52
[2025-08-08] MEDS: metoclopramide 5 mg/ml inj IV ONE (22:30)
[2025-08-08] MEDS: ketorolac trometh 15mg/ml vial 15 MG/ML ML IV ONE (22:33)
[2025-08-08] MEDS: acetaminophen 1,000mg/100ml IV 100 ML IV ONE (22:36)
[2025-08-08] MEDS: normal saline 1000ml 1,000 ML IV ONE (22:37)
[2025-08-08 23:51] VITALS: BP 146/92; PULSE 77; RESP 16; TEMP 98; O2SAT 99
== END 2025-08-08 23:53 | disposition home or self-care (01) ==
LOC: ER 18:15
DX: G43.909 Migraine, unspecified, not intractable, without status migrainosus (principal); Z88.8 Allergy status to other drugs, medicaments and biological substances; Z79.899 Other long term (current) drug therapy
CPT/HCPCS: 96361; 96374; 96375; 99284; J0131; J1885; J2765; J7030; A6258